=== PATIENT | male | born 1965 | race Caucasian/White ===

== ENCOUNTER 2022-04-30 10:57 | Inpatient (IN) | payer OTHER ==
[2022-04-30 11:54] VITALS: BMI 17.7
[2022-04-30] MEDS ORDERED: MAGNESIUM HYDROX 2400MG/30ML ORAL SUSPENSION 30 ML CUP PO PRN (12:25)
[2022-04-30] MEDS ORDERED: ONDANSETRON *ODT* 4 MG TABLET SL PRN (12:25)
[2022-04-30] MEDS ORDERED: NALOXONE HCL (KLOXXADO) 8 MG SPRAY NS PRN (12:25)
[2022-04-30] MEDS ORDERED: BENZOCAINE/MENTHOL (CHLORASEPTIC ) LOZENGE MM PRN (12:25)
[2022-04-30] MEDS ORDERED: NICOTINE POLACRILEX 2 MG GUM BUC PRN (12:25)
[2022-04-30] MEDS ORDERED: methaDONE HCL 10 MG TABLET (FOR DETOX USE ONLY) PO ONE (12:25)
[2022-04-30] MEDS ORDERED: POLYETHYLENE GLYCOL (HEALTHYLAX) 3350 17 GM PACKET PO PRN (12:25)
[2022-04-30] MEDS ORDERED: IBUPROFEN 400 MG TABLET (FP) PO PRN (12:25)
[2022-04-30] MEDS ORDERED: ACETAMINOPHEN 325 MG TABLET (FP) PO PRN (12:25)
[2022-04-30] MEDS ORDERED: BISMUTH SUBSALICYLATE 524 MG/30 ML PO PRN (12:25)
[2022-04-30] MEDS ORDERED: NICOTINE 10 MG CARTRIDGE (INHALER) IH PRN (12:25)
[2022-04-30] MEDS ORDERED: DICYCLOMINE HCL 10 MG CAPSULE PO PRN (12:25)
[2022-04-30] MEDS ORDERED: NICOTINE 7 MG/24 HOURS TOPICAL PATCH TD PRN (12:25)
[2022-04-30] MEDS ORDERED: LOPERAMIDE HCL 2 MG CAPSULE PO PRN (12:25)
[2022-04-30] MEDS ORDERED: MAG HYDROX/AL HYDROX/SIMETH 30 ML UNIT-DOSE CUP PO PRN (12:25)
[2022-04-30] MEDS ORDERED: methaDONE HCL 10 MG TABLET (FOR DETOX USE ONLY) ONE (13:26)
[2022-04-30] MEDS ORDERED: METHOCARBAMOL 500 MG TABLET ONE (14:27)
[2022-04-30] MEDS: METHOCARBAMOL 500 MG TABLET PO PRN ×2 (14:29→23:02)
[2022-04-30] MEDS: cloNIDine HCL 0.1 MG TABLET PO PRN ×2 (14:45→23:03)
[2022-04-30] MEDS: PRENATAL VITAMINS W/ FOLIC ACID TABLET (FP) PO SCH (14:45)
[2022-04-30] MEDS: IBUPROFEN 600 MG TABLET (FP) PO PRN ×2 (14:45→23:24)
[2022-04-30] MEDS: ACETAMINOPHEN 325 MG TABLET (FP) PO PRN (16:45)
[2022-04-30] MEDS: hydrOXYzine PAMOATE 25 MG CAPSULE (FP) PO PRN (16:46)
[2022-04-30] MEDS: MELATONIN 5 MG TABLETS PO SCH (23:02)
[2022-04-30] MEDS: THIAMINE HCL 100 MG TABLET (FP) PO SCH (23:02)
[2022-05-01] MEDS: METHOCARBAMOL 500 MG TABLET PO PRN ×2 (04:44→09:53)
[2022-05-01] MEDS: cloNIDine HCL 0.1 MG TABLET PO PRN (04:44)
[2022-05-01] MEDS: IBUPROFEN 600 MG TABLET (FP) PO PRN ×2 (04:44→18:08)
[2022-05-01] MEDS: PRENATAL VITAMINS W/ FOLIC ACID TABLET (FP) PO SCH (09:53)
[2022-05-01] MEDS: ACETAMINOPHEN 325 MG TABLET (FP) PO PRN ×2 (09:55→22:26)
[2022-05-01] MEDS: LIDOCAINE 5% TOPICAL PATCH TP SCH (10:01)
[2022-05-01 11:09] LABS: HEMATOCRIT 39.5 % (35.4-49); HEMOGLOBIN 12.9 GM/dL (11.7-16.9); MCH 29.7 pg (25.7-33.7); MCHC 32.8 g/dl (32.0-35.9); MEAN CELL VOLUME 90.5 fl (80-96); MEAN PLT VOLUME 7.9 fl (7.5-11.1); PLATELET COUNT 187 10^3/uL (134-434); RBC 4.36 M/mm3 (4.00-5.60); RDW 15.3 % (11.9-15.9); WHITE BLOOD COUNT 5.3 K/mm3 (4.0-10.0)
[2022-05-01 11:18] LABS: CALCIUM 8.7 mg/dL (8.5-10.1)
[2022-05-01 11:19] LABS: ALBUMIN 2.8 g/dl (3.4-5.0); BLOOD UREA NITROGEN 11.2 mg/dL (7-18)
[2022-05-01 11:22] LABS: CREATININE 0.6 mg/dL (0.55-1.3)
[2022-05-01 11:24] LABS: BILIRUBIN,TOTAL 0.7 mg/dL (0.2-1); TOT PROT 6.6 g/dl (6.4-8.2)
[2022-05-01] MEDS ORDERED: FLU VACC QS2022-23(6MOS UP)/PF 60 MCG/0.5 ML SYRINGE IM ONE (12:00)
[2022-05-01] MEDS: THIAMINE HCL 100 MG TABLET (FP) PO SCH (22:25)
[2022-05-01] MEDS: MELATONIN 5 MG TABLETS PO SCH (22:25)
[2022-05-01] MEDS: LIDOCAINE PATCH REMOVAL MC SCH (22:26)
[2022-05-01] MEDS: hydrOXYzine PAMOATE 25 MG CAPSULE (FP) PO PRN (22:27)
[2022-05-01] MEDS: diazePAM 5 MG TABLET PO PRN (22:30)
[2022-05-02] MEDS: cloNIDine HCL 0.1 MG TABLET PO PRN ×2 (01:38→10:01)
[2022-05-02] MEDS ORDERED: methaDONE HCL 10 MG TABLET (FOR DETOX USE ONLY) PO ONE (10:00)
[2022-05-02] MEDS: PRENATAL VITAMINS W/ FOLIC ACID TABLET (FP) PO SCH (10:00)
[2022-05-02] MEDS: METHOCARBAMOL 500 MG TABLET PO PRN (10:01)
[2022-05-02] MEDS: hydrOXYzine PAMOATE 25 MG CAPSULE (FP) PO PRN (10:01)
[2022-05-02] MEDS: diazePAM 5 MG TABLET PO PRN ×2 (10:02→22:49)
[2022-05-02] MEDS: LIDOCAINE 5% TOPICAL PATCH TP SCH (10:08)
[2022-05-02] MEDS: IBUPROFEN 600 MG TABLET (FP) PO PRN (21:01)
[2022-05-02] MEDS: ACETAMINOPHEN 325 MG TABLET (FP) PO PRN (21:08)
[2022-05-02] MEDS: THIAMINE HCL 100 MG TABLET (FP) PO SCH (22:50)
[2022-05-02] MEDS: MELATONIN 5 MG TABLETS PO SCH (22:55)
[2022-05-02] MEDS: LIDOCAINE PATCH REMOVAL MC SCH (22:56)
[2022-05-03] MEDS: METHOCARBAMOL 500 MG TABLET PO PRN (01:42)
[2022-05-03] MEDS: ACETAMINOPHEN 325 MG TABLET (FP) PO PRN (04:16)
[2022-05-03] MEDS: diazePAM 5 MG TABLET PO PRN (04:17)
[2022-05-03 09:44] VITALS: BP 158/87; PULSE 68; RESP 16; TEMP 97
[2022-05-03] MEDS: LIDOCAINE 5% TOPICAL PATCH TP SCH (11:06)
[2022-05-03] MEDS: PRENATAL VITAMINS W/ FOLIC ACID TABLET (FP) PO SCH (11:06)
[2022-05-04] MEDS ORDERED: methaDONE HCL 10 MG TABLET (FOR DETOX USE ONLY) PO ONE (10:00)
== END 2022-05-03 11:15 | disposition left against medical advice (07) | DRG 770 ==
LOC: YASAS 10:57 → Y6N 13:58
PROVIDERS: ADMIT Allergy & Immunology; ATTEND Surgery
PROC: HZ2ZZZZ Detoxification Services for Substance Abuse Treatment (ICD-10-PCS; principal; 2022-04-30)
DX: F11.23 Opioid dependence with withdrawal (principal); F17.210 Nicotine dependence, cigarettes, uncomplicated; I10 Essential (primary) hypertension; M25.562 Pain in left knee; M25.552 Pain in left hip; R63.4 Abnormal weight loss; Z68.1 Body mass index [BMI] 19.9 or less, adult; Z99.89 Dependence on other enabling machines and devices; Z88.0 Allergy status to penicillin
CPT/HCPCS: 36415; 80053; 85027; 86780; 87811; C9803-CS; G0008; Q2036; U0003; U0005

== ENCOUNTER 2022-06-09 20:20 | Inpatient (IN) | payer OTHER ==
[2022-06-09 20:34] VITALS: BMI 17.6
[2022-06-09] MEDS ORDERED: DICYCLOMINE HCL 10 MG CAPSULE PO PRN (21:38)
[2022-06-09] MEDS ORDERED: MAG HYDROX/AL HYDROX/SIMETH 30 ML UNIT-DOSE CUP PO PRN (21:38)
[2022-06-09] MEDS ORDERED: NALOXONE HCL (KLOXXADO) 8 MG SPRAY NS PRN (21:38)
[2022-06-09] MEDS ORDERED: ONDANSETRON *ODT* 4 MG TABLET SL PRN (21:38)
[2022-06-09] MEDS ORDERED: BISMUTH SUBSALICYLATE 524 MG/30 ML PO PRN (21:38)
[2022-06-09] MEDS ORDERED: IBUPROFEN 400 MG TABLET (FP) PO PRN (21:38)
[2022-06-09] MEDS ORDERED: LOPERAMIDE HCL 2 MG CAPSULE PO PRN (21:38)
[2022-06-09] MEDS ORDERED: BENZOCAINE/MENTHOL (CHLORASEPTIC ) LOZENGE MM PRN (21:38)
[2022-06-09] MEDS ORDERED: MAGNESIUM HYDROX 2400MG/30ML ORAL SUSPENSION 30 ML CUP PO PRN (21:38)
[2022-06-09] MEDS ORDERED: POLYETHYLENE GLYCOL (HEALTHYLAX) 3350 17 GM PACKET PO PRN (21:38)
[2022-06-09] MEDS ORDERED: ACETAMINOPHEN 325 MG TABLET (FP) PO PRN ×2 (21:38)
[2022-06-10] MEDS: THIAMINE HCL 100 MG TABLET (FP) PO SCH ×2 (00:22→21:54)
[2022-06-10] MEDS: MELATONIN 5 MG TABLETS PO SCH ×2 (00:22→21:59)
[2022-06-10] MEDS ORDERED: cloNIDine HCL 0.1 MG TABLET PO PRN (10:07)
[2022-06-10] MEDS: hydrOXYzine PAMOATE 25 MG CAPSULE (FP) PO PRN (10:08)
[2022-06-10] MEDS: METHOCARBAMOL 500 MG TABLET PO PRN (10:08)
[2022-06-10] MEDS: IBUPROFEN 600 MG TABLET (FP) PO PRN (10:08)
[2022-06-10] MEDS: PRENATAL VITAMINS W/ FOLIC ACID TABLET (FP) PO SCH (10:47)
[2022-06-10] MEDS ORDERED: methaDONE HCL 10 MG TABLET (FOR DETOX USE ONLY) PO ONE (11:00)
[2022-06-10 11:47] LABS: HEMATOCRIT 32.2 % (35.4-49); HEMOGLOBIN 10.6 GM/dL (11.7-16.9); MCH 29.3 pg (25.7-33.7); MCHC 32.9 g/dl (32.0-35.9); MEAN CELL VOLUME 88.8 fl (80-96); MEAN PLT VOLUME 7.1 fl (7.5-11.1); PLATELET COUNT 264 10^3/uL (134-434); RBC 3.63 M/mm3 (4.00-5.60); WHITE BLOOD COUNT 5.8 K/mm3 (4.0-10.0)
[2022-06-10 12:10] LABS: CALCIUM 8.4 mg/dL (8.5-10.1)
[2022-06-10 12:11] LABS: ALBUMIN 2.1 g/dl (3.4-5.0); BLOOD UREA NITROGEN 10.5 mg/dL (7-18)
[2022-06-10 12:13] LABS: CREATININE 0.5 mg/dL (0.55-1.3)
[2022-06-10 12:15] LABS: BILIRUBIN,TOTAL 0.4 mg/dL (0.2-1); TOT PROT 6.7 g/dl (6.4-8.2)
[2022-06-10] MEDS: diazePAM 5 MG TABLET PO PRN (22:00)
[2022-06-11] MEDS: hydrOXYzine PAMOATE 25 MG CAPSULE (FP) PO PRN (10:34)
[2022-06-11] MEDS: PRENATAL VITAMINS W/ FOLIC ACID TABLET (FP) PO SCH (10:34)
[2022-06-11] MEDS: METHOCARBAMOL 500 MG TABLET PO PRN (10:34)
[2022-06-11] MEDS: THIAMINE HCL 100 MG TABLET (FP) PO SCH (23:55)
[2022-06-11] MEDS: MELATONIN 5 MG TABLETS PO SCH (23:55)
[2022-06-12] MEDS ORDERED: methaDONE HCL 10 MG TABLET (FOR DETOX USE ONLY) PO ONE (10:00)
[2022-06-12] MEDS: PRENATAL VITAMINS W/ FOLIC ACID TABLET (FP) PO SCH (10:55)
[2022-06-12] MEDS: diazePAM 5 MG TABLET PO PRN (10:57)
[2022-06-12] MEDS: THIAMINE HCL 100 MG TABLET (FP) PO SCH (22:16)
[2022-06-12] MEDS: MELATONIN 5 MG TABLETS PO SCH (22:17)
[2022-06-12] MEDS: METHOCARBAMOL 500 MG TABLET PO PRN (22:18)
[2022-06-13] MEDS: PRENATAL VITAMINS W/ FOLIC ACID TABLET (FP) PO SCH (10:20)
[2022-06-13] MEDS: METHOCARBAMOL 500 MG TABLET PO PRN ×2 (10:20→22:28)
[2022-06-13] MEDS: THIAMINE HCL 100 MG TABLET (FP) PO SCH (22:28)
[2022-06-13] MEDS: MELATONIN 5 MG TABLETS PO SCH (22:28)
[2022-06-13] MEDS: hydrOXYzine PAMOATE 25 MG CAPSULE (FP) PO PRN (22:28)
[2022-06-14] MEDS ORDERED: methaDONE HCL 10 MG TABLET (FOR DETOX USE ONLY) PO ONE (10:00)
[2022-06-14] MEDS: METHOCARBAMOL 500 MG TABLET PO PRN (10:19)
[2022-06-14] MEDS: PRENATAL VITAMINS W/ FOLIC ACID TABLET (FP) PO SCH (10:20)
[2022-06-14] MEDS: THIAMINE HCL 100 MG TABLET (FP) PO SCH (22:03)
[2022-06-14] MEDS: MELATONIN 5 MG TABLETS PO SCH (22:04)
[2022-06-14] MEDS: hydrOXYzine PAMOATE 25 MG CAPSULE (FP) PO PRN (22:05)
[2022-06-15] MEDS: IBUPROFEN 600 MG TABLET (FP) PO PRN (01:49)
[2022-06-15] MEDS: METHOCARBAMOL 500 MG TABLET PO PRN (05:24)
[2022-06-15 06:15] VITALS: BP 116/60; PULSE 65; RESP 17; TEMP 96.9
[2022-06-15] MEDS: PRENATAL VITAMINS W/ FOLIC ACID TABLET (FP) PO SCH (11:14)
== END 2022-06-15 10:00 | disposition home or self-care (01) | DRG 773 ==
LOC: YASAS 20:20 → Y6N 22:13
PROVIDERS: ADMIT Allergy & Immunology; ATTEND Surgery
PROC: HZ2ZZZZ Detoxification Services for Substance Abuse Treatment (ICD-10-PCS; principal; 2022-06-09)
DX: F11.23 Opioid dependence with withdrawal (principal); F17.210 Nicotine dependence, cigarettes, uncomplicated; F32.A Depression, unspecified; I10 Essential (primary) hypertension; R63.4 Abnormal weight loss; Z68.1 Body mass index [BMI] 19.9 or less, adult; Z74.09 Other reduced mobility; Z99.89 Dependence on other enabling machines and devices
CPT/HCPCS: 36415; 80053; 85027; 86780; C9803-CS; U0003; U0005